=== PATIENT | male | born 1985 | race Caucasian/White ===

== ENCOUNTER → 2024-01-08 | Emergency (ER) | payer SELFPAY ==
[~2024-01-08] MED LIST: FENTANYL CITR 100 MCG/2 ML ONE; KETOROLAC 30 MG/ML INJ ONE; LIDOCAINE 2% W/EPI 1:200,000 MPF 20 ML VIAL IM ONE
--- OUTSIDE RECORDS SUMMARY | 2024-01-08 14:07 | XMS REPORT | Continuity of Care Document ---
Author Name Unknown Address [address] [facility] [address] [place] [id number] [facility] thconnect Address [address] [facility]. [address] [place] [address] Care Team Providers Care Roofing Sales Representative Name Role Phone Chepe Norman MD Attending Clinician CHEPE NORMAN Attending Clinician Unavailable Allergies, Adverse Reactions, Alerts Allergy Name Allergy Type Status Severity Reaction(s) Onset Date Inactive Date Treating Clinician Comments Source NO KNOWN ALLERGIE S Drug Class Active [facility] Social History Social Habit Start Date Stop Date Quantity Comments Source Exposure to SARS-CoV-2 (event) Unable to assess [facility] Sex Ass[birth year] At 1985 00:00:00 1985 00:00:00 [facility] Smoking Status Start Date Stop Date Source Unknown if ever smoked [facility] Medications Ordered Medication Name Filled Medication Name Start Date Stop Date Current Medication? Ordering Clinician Indication Dosage Frequency Signature (SIG) Comments Components Source NaCl 0.9% (NS) bolus infusion 1,000 mL 05-25 17:30: 00 05-25 19:22 :00 No 1000mL at 999 mL/hr, 1,000 mL, IV Infusion, ONCE, 1 dose, 05/25/21 at 1230, [facility] naloxone (NARCAN) injection 2 mg 05-25 15:45: 00 05-25 14:24 :00 No 2mg 2 mg, Slow IV Push, ONCE, 1 dose, 05/25/21 at 1045, STAT [facility] naloxone (NARCAN) injection 2 mg 05-25 15:45: 00 05-25 14:22 :00 No 2mg 2 mg, Slow IV Push, ONCE, 1 dose, 05/25/21 at 1045, [facility] ammonia aromatic 15 % (w/v) inhaler 1 Ampule 05-25 15:45: 00 05-25 14:20 :00 No 1{ampul e} 1 Ampule, Inhalation , ONCE, 1 dose, 05/25/21 at 1045, [facility] ondansetron (ZOFRAN (PF)) injection 4 mg 05-25 15:30: 00 05-25 14:48 :00 No 4mg 4 mg, Slow IV Push, ONCE, 1 dose, 05/25/21 at 1030, [facility] NaCl 0.9% (NS) bolus infusion 500 mL 05-25 15:30: 00 05-25 16:03 :00 No 500mL at 999 mL/hr, 500 mL, IV Piggyback, ONCE, 1 dose, 05/25/21 at 1030, [facility] Vital Signs Vital Name Observation Time Observation Value Comments S ource Systolic blood pressure 2021-05-25 20:00:00 123 mm[Hg] [facility] Diastolic blood pressure 2021-05-25 20:00:00 69 mm[Hg] [facility] Heart rate 2021-05-25 20:00:00 72 /min [facility] Respiratory rate 2021-05-25 20:00:00 19 /min [facility] Oxygen saturation in Arterial blood by Pulse oximetry 2021-05-25 20:00:00 97 /min [facility] Body temperature 2021-05-25 14:15:00 36.67 Nae [facility] Body weight 2021-05-25 14:15:00 68.04 kg [facility] Procedures Procedure Date / Time Performed Performing Clinician Source URINALYSIS 2021-05-25 15:01:00 [facility] URINE DRUG (IMMUNOASSAY) - COMPREHENSIVE DRUG SCREEN W/O REFLEX 2021-05-25 15:01:00 Chepe Norman [facility] CREATINE KINASE 2021-05-25 14:43:00 [facility] 2021-05-25 14:43:00 Chepe Norman [facility] MAGNESIUM 2021-05-25 14:43:00 [facility] TROPONIN I 2021-05-25 14:43:00 [facility] COMP. METABOLIC PANEL (15526) 2021-05-25 14:43:00 Chepe Norman [facility] SALICYLATE 2021-05-25 14:43:00 [facility] ETHANOL 2021-05-25 14:43:00 [facility] CBC WITH DIFF 2021-05-25 14:43:00 Chepe Norman [facility] N-TERMINAL PRO-BNP 2021-05-25 14:43:00 Chepe Norman [facility] COVID-19 (ID NOW RAPID TESTING) 2021-05-25 14:43:00 Chepe Norman [facility] AC PANEL 21 + LACTIC ACID 2021-05-25 14:34:00 Chepe Norman [facility] Encounters Start Date/Time End Date/Time Encounter Type Admission Type Attending [facility] Facility Care Department Encounter ID Source 2021-05-25 09:16:00 2021-05-25 15:56:00 Emergency Chepe Norman [facility] [id number] [facility] 2021-05-25 09:16:00 2021-05-25 09:16:00 Emergency X CHEPE NORMAN [facility] ERT [id number] [facility] Results Test Description Test Time Test Comments Results Result Co mments Source [facility] 16:11:23* Test Item Value Reference Range Interpretation Comme nts SALICYLATE (test code = 6549701127) <10 mg/L ALANNAH (test code = ALANNAH) Therapeutic Range: ? Analgesic and Antipyretic Use ? 20-100 mg/L ? ? Anti-Inflammatory Use ? 100-250 mg/L Toxic Range: ? Greater than 300 mg/L [facility] WITH [id number] 16:02:34* Test Item Value Reference Range Interpretation Comme nts WBC (test code = 6690-2) See_Comment H [Automated messa ge] The system which generated this result transmitted reference range: 4.20 - 10.70 10*3/?L. The reference range was not used to interpret this result as normal/abnormal. RBC (test code = 789-8) See_Comment L [Automated messa ge] The system which generated this result transmitted reference range: 4.26 - 5.52 10*6/?L. The reference range was not used to interpret this result as normal/abnormal. HGB (test code = 718-7) 13.1 g/dL 12.2-16.4 HCT (test code = 4544-3) 37.4 % 38.4-49.3 L MCV (test code = 787-2) 91.2 fL 81.7-95.6 MCH (test code = 785-6) 32.0 pg 26.1-32.7 MCHC (test code = 786-4) 35.0 g/dL 31.2-35.0 RDW-SD (test code = 64815-2) 40.4 fL 38.5-51.6 RDW-CV (test code = 788-0) 12.0 % 12.1-15.4 L PLT (test code = 777-3) See_Comment [Automated messa ge] The system which generated this result transmitted reference range: 150 - 328 10*3/?L. The reference range was not used to interpret this result as normal/abnormal. MPV (test code = 25946-9) 10.1 fL 9.8-13.0 NRBC/100 WBC (test code = 6645942297) See_Comment [Automated me ssage] The system which generated this result transmitted reference range: 0.0 - 10.0 /100 WBCs. The reference range was not used to interpret this result as normal/abnormal. NRBC x10^3 (test code = 3844855475) <0.01 See_Comment [Automated messa ge] The system which generated this result transmitted reference range: 10*3/?L. The reference range was not used to interpret this result as normal/abnormal. GRAN MAT (NEUT) % (test code = 770-8) 46.5 % IMM GRAN % (test code = 8531122972) 0.30 % LYMPH % (test code = 736-9) 40.0 % MONO % (test code = 5905-5) 9.1 % EOS % (test code = 713-8) 3.4 % BASO % (test code = 706-2) 0.7 % GRAN MAT x10^3(ANC) (test code = 6744122893) 4.98 10*3/uL 1.99-6.95 IMM GRAN x10^3 (test code = 1081386007) 0.03 10*3/uL 0.00-0.06 LYMPH x10^3 (test code = 731-0) 4.30 10*3/uL 1.09-3.23 H MONO x10^3 (test code = 742-7) 0.98 10*3/uL 0.36-1.02 EOS x10^3 (test code = 711-2) 0.37 10*3/uL 0.06-0.53 BASO x10^3 (test code = 704-7) 0.08 10*3/uL 0.01-0.09 Lab Interpretation (test code = 14381-4) Abnormal [facility] [id number] 15:45:28* Test Item Value Reference Range Interpretation Comments TROPONIN I (test code = 4720943481) 0.000 ng/mL See_Comment [Automated message] The system which generated this result transmitted reference range: <=0.034. The reference range was not used to interpret this result as normal/abnormal. ALANNAH (test code = ALANNAH) Reference (Normal) Range (defined by the 99th percentile reference limit): <= 0.034 ng/mL Note: Cardiac troponin begins to rise 3-4 hours after the onset of ischemia. Repeat in 4-6 hours if the sample was drawn within 3-4 hours of the onset of the symptom and found normal. Diagnosis of myocardial injury is made with acute changes in cTn concentrations with at least one serial sample above the 99th percentile upper reference limit (URL), taken together with the patient's clinical presentation. Biotin has been reported to cause a negative bias, interpret results relative to patient's use of biotin. Lab Interpretation (test code = 93617-1) [facility] 15:43:47* Test Item Value Reference Range Interpretation Comme nts ALCOHOL (test code = 5833377729) <10 mg/dL ALANNAH (test code = ALANNAH) <10 [id number] Toxic>100 Depression of UNIVERSAL WINDING MACHINE OPERATOR>400 Fatalities Reported [facility]ASSA[facility] - COMPREHENSIVE DRUG SCREEN W/O [id number] 15:43:27* Test Item Value Reference Range Interpretation Comme nts AMPHET (test code = 4530849305) Negative Negative LADONNA U (test code = 8716225842) Negative Negative BENZO U (test code = 3240339389) Presumptive Positive Negative A Cocaine Metabolite (test code = 2997936613) Negative Negative METHADONE (test code = 6273210405) Negative Negative OPIATES (test code = 4898968371) Negative Negative PCP (test code = 0337147899) Negative Negative THC (test code = 0928715312) Negative Negative ALANNAH (test code = ALANNAH) Urine Drug Cutoff Ranges Cocaine: ? 150 ng/mLBenzodiazepines: ? ? 200 ng/mLMethadone: ? 300 ng/mLAmphetamine: ? 1,000 ng/mLOpiates: ? 300 ng/mLCannabinoids: ?50 ng/mLPhencyclidine: ? ? ? 25 ng/mLBarbiturates: ?200 ng/mL The results are to be used only for medical (i.e., treatment) purposes. Unconfirmed screening results must not be used for non-medical purposes (e.g., employment testing, legal testing). Lab Interpretation (test code = 86063-7) Abnormal [facility] [id number] 15:42:07* Test Item Value Reference Range Interpretation Comme nts NT-proBNP (test code = 5819948709) 37 pg/mL See_Comment [Automated message] The system which generated this result transmitted reference range: <=125. The reference range was not used to interpret this result as normal/abnormal. ALANNAH (test code = ALANNAH) Biotin has been reported to cause a negative bias, interpret results relative to patient's use of biotin. Lab Interpretation (test code = 56781-8) Normal [facility]2021-[facility]-31 15:33:49* Test Item Value Reference Range Interpretation Comme nts APPEARANCE (test code = 2251263782) Clear Clear COLOR (test code = 1905920813) Yellow Yellow PH (test code = 5830320130) 4.8-8.0 SP GRAVITY (test code = 9055781658) 1.003-1.030 GLU U QUAL (test code = 0385944060) Normal Normal BLOOD (test code = 1983333103) Negative Negative KETONES (test code = 8556351834) Negative Negative PROTEIN (test code = 2887-8) Negative Negative UROBILIN (test code = 8031005289) Normal Normal BILIRUBIN (test code = 0646830556) Negative Negative NITRITE (test code = 5404002218) Negative Negative LEUK MONALISA (test code = 2957985224) Negative Negative RBC/HPF (test code = 7256320620) <1 See_Comment [Automated Pigita ge] The system which generated this result transmitted reference range: 0 - 3 HPF. The reference range was not used to interpret this result as normal/abnormal. WBC/HPF (test code = 1771125762) See_Comment [Automated Pigita ge] The system which generated this result transmitted reference range: 0 - 5 HPF. The reference range was not used to interpret this result as normal/abnormal. BACTERIA (test code = 7831046542) Negative Negative MUCOUS (test code = 7521055600) Slight Negative LPF A Lab Interpretation (test code = 92898-9) [facility]normal [facility] (ID NOW RAPID TESTING)2021-05-25 15:33:08* Test Item Value Reference Range Interpretation Comme nts SARS-CoV-2 Rapid ID NOW (test code = 87171-5) Not Detected Not Detected ALANNAH (test code = ALANNAH) ID NOW COVID-19 As say is an isothermal nucleic acid amplification test intended for the qualitative detection of nucleic acid from SARS-CoV-2 viral RNA in nasopharyngeal (DRIVERS' CASH CLERK) specimens. It is used under Emergency Use Authorization (EUA) by FDA. The limit of detection (LOD) of the assay is 125 Genome Equivalents/mL. A positive result is indicative of the presence of SARS-CoV-2 RNA. ?Clinical correlation with patient history and other diagnostic information is necessary to determine patient infection status. A negative (Not Detected) result does not preclude SARS-CoV-2 infection. In patients with clinical symptoms and other tests that are consistent with SARS-CoV-2 infection, negative results should be treated as presumptive negative and a new specimen should be tested with alternative PCR molecular test. Invalid: Please collect a new specimen for repeat patient testing if clinically indicated. Lab Interpretation (test code = 66197-5) Normal [facility]2021-[facility]-31 15:32:26* Test Item Value Reference Range Interpretation Comme nts MAGNESIUM (test code = 9080303318) 2.1 mg/dL 1.7-2.4 Lab Interpretation (test cod e = 52725-5) Normal [facility] 15:32:06* Test Item Value Reference Range Interpretation Comme nts LIPASE (test code = 3229043573) 60 U/L 0-220 Lab Interpretation (test cod e = 88764-5) [facility] Center[facility] METABOLIC PANEL (08628)2021-05-25 15:32:06* Test Item Value Reference Range Interpretation Comme nts NA (test code = 2146402762) 138 mmol/L 135-145 K (test code = 1005224564) 3.4 mmol/L 3.5-5.0 L CL (test code = 8070184278) 101 mmol/L 98-108 CO2 TOTAL (test code = 2883522286) 28 mmol/L 23-31 AGAP (test code = 0909199435) 2-16 BUN (test code = 7737821320) 14 mg/dL 7-23 GLUCOSE (test code = 2047615016) 108 mg/dL 70-110 CREATININE (test code = 0424467779) 0.64 mg/dL 0.60-1.25 TOTAL BILI (test code = 3294059272) 0.3 mg/dL 0.1-1.1 CALCIUM (test code = 5557081055) 9.9 mg/dL 8.6-10.6 T PROTEIN (test code = 7696022969) 7.6 g/dL 6.3-8.2 ALBUMIN (test code = 2907227593) 4.7 g/dL 3.5-5.0 ALK PHOS (test code = 2594854234) 59 U/L 34-122 ALTv (test code = 1742-6) 15 U/L 5-50 AST(SGOT) (test code = 5382545496) 23 U/L 13-40 eGFR (test code = 9551042116) mL/min/1.73m2 ALANNAH (test code = ALANNAH) Association of Glomerular Filtration Rate (GFR) and Staging of Kidney Disease* + --+ --+ ------+| GFR (mL/min/1.73 m2) ?| With Kidney Damage ?| ?Without Kidney Damage+ --------+ --------+ +| ?>90 ?| ?Stage one ?| ? Normal ?+ ---+ ---+ -------+| ?60-89 ?| ?Stage two ?| ? Decreased GFR ? + --+ --+ ------+| ?30-59 ?| ?Stage three ?| ? Stage three ? + --+ --+ ------+| ?15-29 ?| ?Stage four ? | ? Stage four ?+ ---+ ---+ -------+| ?<15 (or dialysis) ? ?| ?Stage five ? | ? Stage five ?+ ---+ ---+ -------+ *Each stage assumes the associated GFR level has been in effect for at least three months. ?Stages 1 to 5, with or without kidney disease, indicate chronic kidney disease. Notes: Determination of stages one and two (with eGFR >59mL/min/1.73 m2) requires estimation of kidney damage for at least three months as defined by structural or functional abnormalities of the kidney, manifested by either:Pathological abnormalities or Markers of kidney damage (including abnormalities in the composition of the blood or urine or abnormalities in imaging tests). Lab Interpretation (test code = 53804-5) Abnormal [facility] CenterCREAT[facility] [id number] 15:31:46* Test Item Value Reference Range Interpretation Comme nts CK (test code = 2678410129) 103 U/L 33-194 Lab Interpretation (test cod e = 32403-7) Normal [facility] Center[facility] PANEL 21 + LACTIC [id number] 14:40:13* Test Item Value Reference Range Interpretation Comme nts PH (test code = 3230522410) 7.32-7.42 PCO2 KRISTYN (test code = 6246857044) See_Comment [Automated messa ge] The system which generated this result transmitted reference range: 41 - 51 mmHg. The reference range was not used to interpret this result as normal/abnormal. PO2 KRISTYN (test code = 6699555598) See_Comment H [Automated messa ge] The system which generated this result transmitted reference range: 25 - 40 mmHg. The reference range was not used to interpret this result as normal/abnormal. HCO3 KRISTYN (test code = 3733565416) See_Comment [Automated messa ge] The system which generated this result transmitted reference range: 24 - 28 mEq/L. The reference range was not used to interpret this result as normal/abnormal. AC VBE(BEAKER) (test code = 5858052813) mEq/L THB KRISTYN (test code = 8680904941) 14.0 g/dL 13.5-18.0 %O2HB KRISTYN (test code = 3531186375) 86.2 % 52.0-63.0 H %COHB KRISTYN (test code = 7306974505) 3.9 % 0.0-1.5 H %METHB KRISTYN (test code = 1158493932) 0.3 % 0.4-1.5 L VOL%O2 KRISTYN (test code = 2438914867) 16.9 % 6.0-12.0 H NA (test code = 3054650159) 137 mmol/L 135-145 K+ (test code = 8170252302) 3.5 mmol/L 3.5-5.0 AC CA IONZ (test code = 5177994231) 4.60 mg/dL 4.50-5.30 GLUCOSE (test code = 4801333658) 103 mg/dL 70-110 LACTIC ACID (test code = 0350955997) 1.15 mmol/L 0.50-2.20 Lab Interpretation (test code = 28220-7) Abnormal [facility]"
[2024-01-08 14:57] LABS: Absolute Basophils 0.1 K/uL (0-0.5); Absolute Eosinophils 0.2 K/uL (0-0.5); Absolute Lymphocytes (CBC) 2.3 K/uL (0.7-4.9); Absolute Monocytes 1.3 K/uL (0.1-1.3); Absolute Neutrophil 7.4 K/uL (1.8-8.0); Eosinophils % 1.3 % (0-4.4); Hemoglobin 12.5 g/dL (13.6-17.9); Lymphocytes % 20.3 % (15.3-44.8); MCHC 33.7 g/dL (32.0-36.0); MCV 97.8 fL (80-100); MPV 7.9 fL (7.6-11.3); Monocytes % 11.4 % (3.3-12.3); Platelets 333 thou/uL (152-406); RBC Red Blood Cell Count 3.78 M/uL (4.33-5.43); Red Cell Distribution Width 14.9 % (12.1-15.2)
[2024-01-08 15:17] LABS: Albumin 3.3 g/dL (3.4-5.0); Albumin/Globulin Ratio 0.9 (1.1-1.8); Anion Gap 7.6 mEq/L (5.0-15.0); Bilirubin Total 0.3 mg/dL (0.2-1.0); Globulin 3.6 g/dL (2.3-3.5); Potassium 3.6 mEq/L (3.5-5.1); Protein, Total 6.9 g/dL (6.4-8.2)
--- NOTE | 2024-01-08 15:30 | RAD REPORT ---
EXAM DESCRIPTION: CT - CTF CLINICAL HISTORY: L lower facial swelling COMPARISON: No comparisons TECHNIQUE: Axial thin cut noncontrast CT images of the face were obtained with sagittal and coronal reconstruction images. All CT scans are performed using dose optimization technique as appropriate and may include automated exposure control or mA/KV adjustment according to patient size. FINDINGS: Prominent soft tissue swelling along the left lower show. Ill-defined suspected fluid andrea ection suggesting a subperiosteal abscess measuring 2.0 x 1.0 cm in greatest axial dimensions. This a ppears to be centered on a small periapical fluid collection along the root of the second left mandib ular premolar where there is a buccal cortex defect, see image 26 series 201. Numerous other periapic al collections are seen along the maxillary and mandibular teeth. No acute facial bone fracture is seen.The mandible is intact. The globes and orbital contents are grossly unremarkable.The paranasal sinuses and mastoids are clear . IMPRESSION: Pronounced soft tissue swelling along the left lower jaw, with suspected although ill-de fined subperiosteal fluid collection suggesting an abscess measuring up to 2 cm. This appears to be c enter on a small periapical fluid collection along the root of the second left mandibular premolar. Numerous other periapical collections are seen along the maxillary and mandibular teeth. The findings were communicated to Javed Luis on 01/08/2024 at 15:18 hours.
--- NOTE | 2024-01-08 16:25 | EDPHYS ---
Physician Documentation [facility] Name: Dao Fortune Age: 38 yrs Sex: Male : 1985 Arrival Date: 01/08/2024 Time: 14:04 Bed 14 Private MD: ED Physician Javed Luis HPI: 01/07 14:21 This 38 yrs old Male presents to ER via Ambulatory with complaints of Mouth ec2 Problem. 14:21 Patient arrives today for evaluation of left facial swelling. Patient reports 2 days of ec2 progressive swelling to the left lower lip. Patient reports no fevers or chills, no nausea or vomiting. Patient reports increased pain. Reports reports poor dentition at baseline, is a smoker approximately 1 and a half pack per day.. Historical: - Allergies: 14:18 Iodine; ll1 - PMHx: 14:18 None; ll1 - PSHx: 14:18 L arm SX; ll1 - Immunization history:: Adult Immunizations up to date. - Social history:: Smoking status: Patient reports the use of cigarette tobacco products, smokes one pack cigarettes per day. Reported history of juuling and/or vaping. ROS: 14:21 Constitutional: as per hpi ec2 Exam: 14:21 Constitutional: GEN: NAD Head: atraumatic Eyes: EOMI Ears: External ears are normal. ec2 Mouth: Left lower facial swelling, induration noted at the lower gumline. No stridor, no trismus CV: regular rate LUNGS: no respiratory distress ABD: non-distended SKIN: no evidence of rashes MSK: no evidence of trauma NEURO: moves all extremities equally Vital Signs: 14:16 BP 136 / 101; Pulse 61; Resp 17; Temp 98.4; Pulse Ox 100% ; Weight 70.31 kg; Height 5 ll1 ft. 9 in. ; Pain 8/10; 14:49 BP 126 / 86; Pulse 60; Resp 16 S; Pulse Ox 97% on R/A; Pain 7/10; kc6 16:05 BP 106 / 63; Pulse 58; Resp 17; Pulse Ox 98% on R/A; kd3 16:30 BP 154 / 75; Pulse 55; Resp 16 S; Pulse Ox 98% on R/A; kc6 14:16 Body Mass Index 22.89 (70.31 kg, 175.26 cm) ll1 14:16 Pain Scale: Adult ll1 14:49 Pain Scale: Adult kc6 Procedures: 16:23 I \T\ D: Incision and drainage was performed for an abscess of the left mouth Prepped ec2 with Anesthetized with 2 ml's 2% Lidocaine. Incised with #11 blade. Drained large amount purulent fluid. the patient tolerated the procedure well. MDM: 14:12 Patient medically screened. ec2 14:21 Data reviewed: vital signs. ED course: Patient arrives today for evaluation of facial ec2 swelling. Examination remarkable for HEENT findings as noted above. Will obtain lab work, CT imaging. Patient is allergic to iodine, will defer contrasted study however this would be preferred. Will give the patient Toradol for pain control and obtain lab work as well. Evaluating for dental abscess, soft tissue abscess.. 15:18 ED course: Metabolic profile with appropriate renal function, minimal leukocytosis at ec2 11.2. . 15:44 ED course: CT imaging shows Swelling in the left lower jaw, this corresponds to the ec2 patient's swelling visualized on examination. I discussed possible ENT I\T\D, states that he would like to proceed with drainage at the bedside by me. I will perform direct anesthesia to the area and perform I\T\D. . 01/07 14:19 Order name: CBC with Diff; Complete Time: 15:16 ec2 01/07 14:19 Order name: CMP; Complete Time: 15:18 ec2 01/07 14:26 Order name: Maxillofacial Wo Con; Complete Time: 15:32 EDMS 01/07 15:45 Order name: Incision \T\ Drainage Setup; Complete Time: 15:56 ec2 Administered Medications: 14:47 Drug: Ketorolac IVP 15 mg IVP once Route: IVP; Site: right antecubital; kc6 15:21 Follow up: Response: No adverse reaction kc6 16:04 Drug: fentaNYL (PF) IVP 50 mcg IVP once Route: IVP; Site: right antecubital; kd3 16:30 Follow up: Response: No adverse reaction; Pain is decreased; RASS: Alert and Calm (0) kc6 16:09 Drug: Lidocaine-Epinephrine Infiltration -1%: (1:100,000) 10 ml 20 ml Infiltration kc6 once; to bedside {Note: let jaw/facial area by Dr. Luis.} Volume: 20 ml; Route: Infiltration; 16:30 Follow up: Response: No adverse reaction; Pain is decreased kc6 Disposition Summary: 01/08/24 16:24 Discharge Ordered Condition: Stable ec2 Diagnosis - Dental Abscess ec2 Followup: ec2 - With: Private Physician - When: - Reason: Re-evaluation by your physician Discharge Instructions: - Discharge Summary Sheet ec2 - Dental Abscess, [id number] ec2 Forms: - Medication Reconciliation Form ec2 - Thank You Letter ec2 - Antibiotic Education ec2 - Prescription Opioid Use ec2 - Patient Portal Instructions ec2 - Leadership Thank You Letter ec2 Prescriptions: - acetaminophen-codeine 300-15 mg Oral tablet - take 1 tablet ORAL route 4 times per day; 15 tablet; Refills: 0, Product ec2 Selection Permitted - Clindamycin HCl 150 mg Oral capsule - take 3 capsule ORAL route every 8 hours for 7 days; 63 capsule; Refills: 0, ec2 Product Selection Permitted Signatures: Dispatcher [employer] EDSoo Webb RN RN ll1 Bela Vang RN RN kd3 Marisol Hemphill RN RN kc6 Javed Luis MD MD ec2 Corrections: (The following items were deleted from the chart) 14:26 14:23 CT-MAXILLOFACIAL W/O CONTRAST ordered. EDME WANDA
--- NOTE | 2024-01-08 16:25 | ER ---
Nurse's Notes [facility] Name: Dao Fortune Age: 38 yrs Sex: Male : 1985 Arrival Date: 01/08/2024 Time: 14:04 Bed 14 Private MD: Diagnosis: Dental Abscess Presentation: 01/07 14:16 Chief complaint: Patient states: L lower jaw tooth pain for 4 days swelling more each ll1 day. No fever, but N/V started today. Coronavirus screen: Client denies travel out of the [place] in the last 14 days. At this time, the client does not indicate any symptoms associated with coronavirus-19. Ebola Screen: Patient denies travel to an Ebola-affected area in the 21 days before illness onset. Initial Sepsis Screen: Does the patient meet any 2 criteria? No. Patient's initial sepsis screen is negative. Does the patient have a suspected source of infection? No. Patient's initial sepsis screen is negative. Risk Assessment: Do you want to hurt yourself or someone else? Patient reports no desire to harm self or others. Onset of symptoms was January 05, 2024. 14:16 Method Of Arrival: Ambulatory ll1 14:16 Acuity: NICK 3 ll1 Historical: - Allergies: 14:18 Iodine; ll1 - PMHx: 14:18 None; ll1 - PSHx: 14:18 L arm SX; ll1 - Immunization history:: Adult Immunizations up to date. - Social history:: Smoking status: Patient reports the use of cigarette tobacco products, smokes one pack cigarettes per day. Reported history of juuling and/or vaping. Screenin:48 [facility] ED Fall Risk Assessment (Adult) History of falling in the last 3 months, kc6 including since admission No falls in past 3 months (0 pts) Confusion or Disorientation No (0 pts) Intoxicated or Sedated No (0 pts) Impaired Gait No (0 pts) Mobility Assist Device Used No (0 pt) Altered Elimination No (0 pt) Score/Fall Risk Level 0 - 2 = Low Risk. Abuse screen: Denies threats or abuse. Denies injuries from another. Nutritional screening: No deficits noted. Tuberculosis screening: No symptoms or risk factors identified. Assessment: 14:48 General: Appears in no apparent distress. comfortable, well groomed, well developed, kc6 Behavior is calm, cooperative, appropriate for age. Pain: Complains of pain in mouth Pain currently is 7 out of 10 on a pain scale. Quality of pain is described as throbbing. Neuro: Level of Consciousness is awake, alert, obeys commands, Oriented to person, place, time, situation, Appropriate for age. Cardiovascular: Capillary refill < 3 seconds. Respiratory: Airway is patent Trachea midline Respiratory effort is even, unlabored, Respiratory pattern is regular, symmetrical. GI: No signs and/or symptoms were reported involving the gastrointestinal system. : No signs and/or symptoms were reported regarding the genitourinary system. EENT: No signs and/or symptoms were reported regarding the EENT system. Derm: Skin is intact, is healthy with good turgor, Skin is pink, warm \T\ dry. Musculoskeletal: Circulation, motion, and sensation intact. Capillary refill < 3 seconds, Range of motion: intact in all extremities, Swelling present in mouth. 16:30 Reassessment: Patient appears in no apparent distress at this time. No changes from kc6 previously documented assessment. Patient and/or family updated on plan of care and expected duration. Pain level reassessed. Patient is alert, oriented x 3, equal unlabored respirations, skin warm/dry/pink. Patient states feeling better. Patient states symptoms have improved. Vital Signs: 14:16 BP 136 / 101; Pulse 61; Resp 17; Temp 98.4; Pulse Ox 100% ; Weight 70.31 kg; Height 5 ll1 ft. 9 in. ; Pain 8/10; 14:49 BP 126 / 86; Pulse 60; Resp 16 S; Pulse Ox 97% on R/A; Pain 7/10; kc6 16:05 BP 106 / 63; Pulse 58; Resp 17; Pulse Ox 98% on R/A; kd3 16:30 BP 154 / 75; Pulse 55; Resp 16 S; Pulse Ox 98% on R/A; kc6 14:16 Body Mass Index 22.89 (70.31 kg, 175.26 cm) ll1 14:16 Pain Scale: Adult ll1 14:49 Pain Scale: Adult kc6 ED Course: 14:08 Patient arrived in ED. mg5 14:08 Javed Luis MD is Attending Physician. ec2 14:18 Triage completed. ll1 14:19 Arm band placed on Patient placed in an exam room, on a stretcher. ll1 14:32 Marisol Hemphill, CINDA is Primary Nurse. kc6 14:33 Maxillofacial Wo Con In Process Unspecified. EDMS 14:47 Inserted saline lock: 20 gauge in right antecubital area, using aseptic technique. kc6 Blood collected. Patient maintains SpO2 saturation greater than 95% on room air. 14:48 Patient has correct armband on for positive identification. Bed in low position. Call kc6 light in reach. Side rails up X 1. Adult w/ patient. Client placed on continuous cardiac and pulse oximetry monitoring. NIBP monitoring applied. 16:13 Assist provider with I \T\ D: of an abscess on left jaw Set up I\T\D tray. Performed by abdifatah 6 Javed Luis MD Dressing with 4X4s, tape Patient tolerated well. 16:36 IV discontinued, intact, bleeding controlled, No redness/swelling at site. Pressure kc6 dressing applied. Administered Medications: 14:47 Drug: Ketorolac IVP 15 mg IVP once Route: IVP; Site: right antecubital; kc6 15:21 Follow up: Response: No adverse reaction kc6 16:04 Drug: fentaNYL (PF) IVP 50 mcg IVP once Route: IVP; Site: right antecubital; kd3 16:30 Follow up: Response: No adverse reaction; Pain is decreased; RASS: Alert and Calm (0) kc6 16:09 Drug: Lidocaine-Epinephrine Infiltration -1%: (1:100,000) 10 ml 20 ml Infiltration kc6 once; to bedside {Note: let jaw/facial area by Dr. Luis.} Volume: 20 ml; Route: Infiltration; 16:30 Follow up: Response: No adverse reaction; Pain is decreased kc6 Medication: 16:36 VIS not applicable for this client. kc6 Outcome: 16:24 Discharge ordered by MD. ec2 16:36 Discharged to home ambulatory, with significant other, kc6 16:36 Condition: good 16:36 Discharge instructions given to patient, Instructed on discharge instructions, follow up and referral plans. medication usage, wound care, Demonstrated understanding of instructions, follow-up care, medications, wound care, Prescriptions given X 2, 16:36 Patient left the ED. kc6 Signatures: Dispatcher [employer] Soo Matthews RN RN ll1 Bela Vang, CINDA RN kd3 Marisol Hemphill RN RN kc6 Heather Underwood mg5 Javed Luis MD MD ec2 Corrections: (The following items were deleted from the chart) 14:19 14:16 BP 136 / 101; Pulse 61bpm; Resp 17bpm; Pulse Ox 100%; Temp 98.4F; ll1 ll1
[2024-01-08 17:19] VITALS: TEMP 98.4
[2024-01-08 17:45] VITALS: BP 154/75; O2SAT 98
== END ==
LOC: ER 14:04
PROC: 0C94XZZ Drainage of Buccal Mucosa, External Approach (ICD-10-PCS; principal; 2024-01-08)
DX: K04.7 Periapical abscess without sinus (principal)
CPT/HCPCS: 36415; 70486; 80053; 85025; 96374; 96375; 99285; J3010

== ENCOUNTER 2024-06-04 14:29 | Emergency (ER) | payer SELFPAY ==
--- NOTE | 2024-06-04 16:23 | ER ---
Nurse's Notes [facility] Name: Dao Fortune Age: 38 yrs Sex: Male : 1985 Arrival Date: 06/04/2024 Time: 14:29 Bed DX1 Private MD: Diagnosis: Rash and other nonspecific skin eruption;Bitten by rat, initial encounter Presentation: 06/04 14:50 Chief complaint: Patient states: Was bit by a rat 1 month ago on his left hand and cm10 bilateral feet. Pt states that he has had a rash "and other weird symptoms". Coronavirus screen: Client denies travel out of the [place] in the last 14 days. At this time, the client does not indicate any symptoms associated with coronavirus-19. Ebola Screen: Patient denies travel to an Ebola-affected area in the 21 days before illness onset. No symptoms or risks identified at this time. Initial Sepsis Screen: Does the patient meet any 2 criteria? No. Patient's initial sepsis screen is negative. Does the patient have a suspected source of infection? No. Patient's initial sepsis screen is negative. Risk Assessment: Do you want to hurt yourself or someone else? Patient reports no desire to harm self or others. Onset of symptoms was June 04, 2024. 14:50 Method Of Arrival: Ambulatory cm10 14:50 Acuity: NICK 4 cm10 Triage Assessment: 14:52 General: Appears in no apparent distress. comfortable, Behavior is calm, cooperative. cm10 Neuro: No deficits noted. Level of Consciousness is awake, alert, obeys commands, Oriented to person, place, time, situation, Appropriate for age. Respiratory: No deficits noted. Airway is patent Respiratory effort is even, unlabored, Respiratory pattern is regular, symmetrical. Historical: - Allergies: 14:51 Iodine; cm10 - Home Meds: 14:51 None [Active]; cm10 - PMHx: 14:51 None; cm10 - PSHx: 14:51 L arm SX; cm10 - Immunization history:: Adult Immunizations up to date. - Infectious Disease History:: Denies. - Social history:: Smoking status: unknown. Screenin:31 [facility] ED Fall Risk Assessment (Adult) History of falling in the last 3 months, hb including since admission No falls in past 3 months (0 pts) Confusion or Disorientation No (0 pts) Intoxicated or Sedated No (0 pts) Impaired Gait No (0 pts) Mobility Assist Device Used No (0 pt) Altered Elimination No (0 pt) Score/Fall Risk Level 0 - 2 = Low Risk Oriented to surroundings, Maintained a safe environment, Educated pt \\T\\ family on fall prevention, incl call for assistance when getting out of bed. Abuse screen: Denies threats or abuse. Denies injuries from another. Nutritional screening: No deficits noted. Tuberculosis screening: No symptoms or risk factors identified. Assessment: 17:31 General: Appears in no apparent distress. Behavior is calm, cooperative. Pain: Pain hb currently is 3 out of 10 on a pain scale. Neuro: Level of Consciousness is awake, alert, obeys commands, Oriented to person, place, time, situation. Cardiovascular: Patient's skin is warm and dry. Vital Signs: 14:50 BP 130 / 71; Pulse 56; Resp 18; Temp 97.9; Pulse Ox 100% ; Weight 68.04 kg; Height 5 cm10 ft. 9 in. ; Pain 3/10; 14:50 Body Mass Index 22.15 (68.04 kg, 175.26 cm) cm10 14:50 Pain Scale: Adult cm10 ED Course: 14:31 Patient arrived in ED. mr 14:35 [facility]egan Edgar [facility]C [facility] sb4 14:35 Sven Payton MD is Attending Physician. sb4 14:51 Triage completed. cm10 14:52 Arm band placed on Patient placed in waiting room. cm10 15:55 Shoulder Right (2 View) XRAY In Process Unspecified. EDMS 17:31 Patient has correct armband on for positive identification. Provided Education on: hb follow up, medications . 17:31 No provider procedures requiring assistance completed. Patient did not have IV access hb during this emergency room visit. Administered Medications: 17:30 Drug: Rocephin (cefTRIAXone) IM 1 grams IM once Route: IM; Site: left deltoid; hb 17:30 Follow up: Response: Medication administered at discharge. hb Medication: 17:31 VIS not applicable for this client. hb Outcome: 16:22 Discharge ordered by . sb4 17:30 Discharged to home ambulatory, hb 17:30 Condition: stable 17:30 Discharge instructions given to patient, Instructed on discharge instructions, follow up and referral plans. medication usage, Demonstrated understanding of instructions, follow-up care, medications, Prescriptions given X 2, 17:32 Patient left the ED. Signatures: Dispatcher [employer] EDTN Kristi Evans, Rajendra Drew mr Mila Acosta, RN RN Maegan Robertson, PA-C PA-C [email or web address] Lorie Kan RN RN cm10
--- NOTE | 2024-06-04 16:23 | EDPHYS ---
Physician Documentation [facility] Name: Dao Fortune Age: 38 yrs Sex: Male : 1985 Arrival Date: 06/04/2024 Time: 14:29 Bed DX1 Private MD: ED Physician Sven Payton HPI: 06/04 15:40 This 38 yrs old Male presents to ER via Ambulatory with complaints of Rat Bite. sb4 15:40 patient states that he was bitten by a rat on his left finger and bilateral feet 1 sb4 month ago. he states that he did not initially seek medical attention. he states that since then he has had an intermittent rash on his hands and feet, been fatigued, and has pain all over. additionally, he reports that he "threw his shoulder out" at work 2 days ago. he denies any fever, chest pain, shortness of breath. Historical: - Allergies: 14:51 Iodine; cm10 - Home Meds: 14:51 None [Active]; cm10 - PMHx: 14:51 None; cm10 - PSHx: 14:51 L arm SX; cm10 - Immunization history:: Adult Immunizations up to date. - Infectious Disease History:: Denies. - Social history:: Smoking status: unknown. ROS: 15:40 Respiratory: Negative for shortness of breath, cough, wheezing, and pleuritic chest sb4 pain, 15:40 Constitutional: Positive for fatigue, malaise, 15:40 MS/extremity: Positive for injury or acute deformity, pain, of the anterior aspect of right shoulder and posterior aspect of right shoulder, 15:40 Skin: Positive for rash, 15:40 All other systems are negative, Exam: 16:20 Constitutional: This is a well developed, well nourished patient who is awake, alert, sb4 and in no acute distress. Head/Face: Normocephalic, atraumatic. Eyes: Extra-ocular motions intact. Periorbital areas with no swelling, redness, or edema. ENT: Mucous membranes moist. Cardiovascular: Regular rate and rhythm with a normal S1 and S2. Respiratory: Lungs have equal breath sounds bilaterally, clear to auscultation and percussion. No rales, rhonchi or wheezes noted. No increased work of breathing, no retractions or nasal flaring. Abdomen/GI: Soft, non-tender, no distension. 16:20 Musculoskeletal/extremity: Joints: the right shoulder displays painful range of motion, 16:20 Skin: scaling patches palmar aspect of bilateral hands and feet, Vital Signs: 14:50 BP 130 / 71; Pulse 56; Resp 18; Temp 97.9; Pulse Ox 100% ; Weight 68.04 kg; Height 5 cm10 ft. 9 in. ; Pain 3/10; 14:50 Body Mass Index 22.15 (68.04 kg, 175.26 cm) cm10 14:50 Pain Scale: Adult cm10 MDM: 14:42 Patient medically screened. sb4 16:20 Data reviewed: vital signs, nurses notes, radiologic studies, I have discussed the sb4 patient's presentation/case with the attending Emergency Department Physician; and as a result, I will discharge patient. Counseling: I had a detailed discussion with the patient and/or guardian regarding the historical points, exam findings, and any diagnostic results supporting the discharge/admit diagnosis, radiology results, to return to the emergency department if symptoms worsen or persist or if there are any questions or concerns that arise at home. 06/04 14:55 Order name: Shoulder Right (2 View) XRAY; Complete Time: 16:32 sb4 06/04 16:24 Order name: Shoulder Immobilizer; Complete Time: 17:10 sb4 Administered Medications: 17:30 Drug: Rocephin (cefTRIAXone) IM 1 grams IM once Route: IM; Site: left deltoid; 17:30 Follow up: Response: Medication administered at discharge. Disposition Summary: 06/04/24 16:22 Discharge Ordered Notes: Location: Home sb4 Problem: an ongoing problem sb4 Symptoms: have improved sb4 Condition: Stable sb4 Diagnosis - Rash and other nonspecific skin eruption sb4 - Bitten by rat, initial encounter sb4 Followup: sb4 - With: Emergency Department - When: As needed - Reason: Fever > 102 F, Trouble breathing, Worsening of condition Discharge Instructions: - Discharge Summary Sheet sb4 - Shoulder Sprain sb4 Forms: - Antibiotic Education sb4 - Patient Portal Instructions sb4 - Leadership Thank You Letter sb4 Prescriptions: - Amoxicillin 500 mg Oral capsule - take 1 capsule ORAL route every 8 hours for 14 days; 42 tablet; Refills: 0, sb4 Product Selection Permitted - Anaprox DS 550 mg Oral Tablet - take 1 tablet ORAL route every 12 hours As needed; 20 tablet; Refills: 0, sb4 Product Selection Permitted Signatures: Dispatcher [employer] Mila Johnson, RN RN Maegan Robertson PA-C PA-C sb4 Lorie Kan RN RN cm10
--- NOTE | 2024-06-04 16:31 | RAD REPORT ---
EXAM DESCRIPTION: RAD - Shoulder Right 2 View - 06/04/2024 3:53 pm CLINICAL HISTORY: Right shoulder pain FINDINGS: No fracture or dislocation is seen. No bone or joint abnormality noted
[2024-06-04] MEDS ORDERED: LIDOCAINE 1% MPF 2 ML AMPULE ONE (17:22)
[2024-06-04] MEDS ORDERED: CEFTRIAXONE 1000 MG/VIAL ONE (17:22)
[2024-06-04 17:37] VITALS: BP 130/71; TEMP 97.9; O2SAT 100
== END 2024-06-04 17:32 | disposition home or self-care (01) ==
LOC: ER 14:29
DX: R21 Rash and other nonspecific skin eruption (principal); W53.11XA Bitten by rat, initial encounter; M25.511 Pain in right shoulder
CPT/HCPCS: 96372; 99284; J0696

== ENCOUNTER 2024-06-23 00:22 | Emergency (ER) | payer SELFPAY ==
[2024-06-23] MEDS ORDERED: IBUPROFEN 400 MG TAB ONE (01:23)
[2024-06-23] MEDS ORDERED: IBUPROFEN 200 MG TAB PO ONE (01:23)
--- NOTE | 2024-06-23 01:23 | EDPHYS ---
Physician Documentation [facility] Name: Dao Fortune Age: 38 yrs Sex: Male : 1985 Arrival Date: 06/23/2024 Time: 00:22 Bed 14 Private MD: ED Physician Sven Payton HPI: 06/23 01:18 This 38 yrs old Male presents to ER via Ambulatory with complaints of PT sheila STATES HE HAS "RAT BITE FEVER". 01:18 bitten by rat a month ago. Onset: The symptoms/episode began/occurred 1 month(s) ago. sheila Severity of symptoms: At their worst the symptoms were mild in the emergency department the symptoms are unchanged. The patient has experienced similar episodes in the past. Historical: - Allergies: 01:12 Iodine; rg5 - PSHx: 01:12 L arm SX; rg5 - Immunization history:: Adult Immunizations not up to date. - Infectious Disease History:: Denies. - Social history:: Smoking status: unknown. - Family history:: not pertinent. ROS: 01:18 Constitutional: Negative for fever, chills, and weight loss, Eyes: Negative for injury, sheila pain, redness, and discharge, ENT: Negative for injury, pain, and discharge, Neck: Negative for injury, pain, and swelling, Cardiovascular: Negative for chest pain, palpitations, and edema, Respiratory: Negative for shortness of breath, cough, wheezing, and pleuritic chest pain, Abdomen/GI: Negative for abdominal pain, nausea, vomiting, diarrhea, and constipation, Back: Negative for injury and pain, : Negative for injury, bleeding, discharge, and swelling, Skin: Negative for injury, rash, and discoloration, Neuro: Negative for headache, weakness, numbness, tingling, and seizure, Psych: Negative for depression, anxiety, suicide ideation, homicidal ideation, and hallucinations, Allergy/Immunology: Negative for hives, rash, and allergies, Endocrine: Negative for neck swelling, polydipsia, polyuria, polyphagia, and marked weight changes, Hematologic/Lymphatic: Negative for swollen nodes, abnormal bleeding, and unusual bruising, 01:18 MS/extremity: Positive for pain, of the right arm, left arm, right leg and left leg, Exam: 01:18 Constitutional: This is a well developed, well nourished patient who is awake, alert, sheila and in no acute distress. Head/Face: Normocephalic, atraumatic. Eyes: Pupils equal round and reactive to light, extra-ocular motions intact. Lids and lashes normal. Conjunctiva and sclera are non-icteric and not injected. Cornea within normal limits. Periorbital areas with no swelling, redness, or edema. ENT: Nares patent. No nasal discharge, no septal abnormalities noted. Tympanic membranes are normal and external auditory canals are clear. Oropharynx with no redness, swelling, or masses, exudates, or evidence of obstruction, uvula midline. Mucous membranes moist. Neck: Trachea midline, no thyromegaly or masses palpated, and no cervical lymphadenopathy. Supple, full range of motion without nuchal rigidity, or vertebral point tenderness. No Meningismus. Chest/axilla: Normal chest wall appearance and motion. Nontender with no deformity. No lesions are appreciated. Cardiovascular: Regular rate and rhythm with a normal S1 and S2. No gallops, murmurs, or rubs. Normal PMI, no JVD. No pulse deficits. Respiratory: Lungs have equal breath sounds bilaterally, clear to auscultation and percussion. No rales, rhonchi or wheezes noted. No increased work of breathing, no retractions or nasal flaring. Abdomen/GI: Soft, non-tender, with normal bowel sounds. No distension or tympany. No guarding or rebound. No evidence of tenderness throughout. Back: No spinal tenderness. No costovertebral tenderness. Full range of motion. Male : Normal genitalia with no discharge or lesions. Skin: Warm, dry with normal turgor. Normal color with no rashes, no lesions, and no evidence of cellulitis. MS/ Extremity: Pulses equal, no cyanosis. Neurovascular intact. Full, normal range of motion. Neuro: Awake and alert, GCS 15, oriented to person, place, time, and situation. Cranial nerves II-XII grossly intact. Motor strength 5/5 in all extremities. Sensory grossly intact. Cerebellar exam normal. Normal gait. Psych: Awake, alert, with orientation to person, place and time. Behavior, mood, and affect are within normal limits. Vital Signs: 00:56 BP 128 / 78; Pulse 80; Resp 16; Temp 98.4; Pulse Ox 100% ; Weight 68.04 kg; Height 5 ty ft. 10 in. ; Pain 6/10; 01:12 BP 128 / 72; Pulse 80; Resp 16; Temp 98.2; Pulse Ox 100% on R/A; Pain 6/10; rg5 00:56 Body Mass Index 21.52 (68.04 kg, 177.8 cm) ty 00:56 Pain Scale: Adult ty 01:12 Pain Scale: Adult rg5 MDM: 00:49 Patient medically screened. [facility] 01:20 Differential Diagnosis altered mental status, sepsis, flu. Data reviewed: vital signs, [facility] nurses notes. Consideration of Admission/Observation Escalation of care including admission/observation considered. I considered the following discharge prescriptions or medication management in the emergency department Medications were administered in the Emergency Department. See MAR. Test considered but Not performed: Labs: no labs. Care significantly affected by the following chronic conditions: none. Administered Medications: 01:27 Drug: Doxycycline PO 200 mg PO once Route: PO; rg5 01:58 Follow up: Response: No adverse reaction [facility] 01:27 Drug: Ibuprofen PO 600 mg PO once Route: PO; rg5 01:58 Follow up: Response: No adverse reaction rg5 Disposition Summary: 06/23/24 01:54 Discharge Ordered Notes: Location: Home(06/23/24 01:54) [facility] Condition: Stable(06/23/24 01:54) [facility] Diagnosis - Bitten by rat, subsequent encounter sheila Followup: sheila - With: Private Physician - When: 2 - 3 days - Reason: Recheck today's complaints, Continuance of care, Re-evaluation by your physician Followup: sheila - With: Dionicio Keys MD - When: 2 - 3 days - Reason: Recheck today's complaints, Re-evaluation by your physician Discharge Instructions: - Discharge Summary Sheet [facility] - Animal Bite, Adult, [id number] [facility] - Animal Bite, Adult [facility] Forms: - Medication Reconciliation Form [facility] - Antibiotic Education [facility] - Prescription Opioid Use [facility] - Patient Portal Instructions [facility] - Leadership Thank You Letter [facility] Prescriptions: - Ibuprofen 600 mg Oral tablet - take 1 tablet ORAL route every 6 hours As needed take with food; 20 tablet; [facility] Refills: 0, Product Selection Permitted - Doxycycline Hyclate 100 mg Oral Tablet - take 1 tablet ORAL route every 12 hours; 20 tablet; Refills: 0, Product [facility] Selection Permitted Signatures: Sven Payton MD MD cha Gallardo, Rommel RN RN rg5 Corrections: (The following items were deleted from the chart) 01:35 01:22 Home sheila rg5 :35 01:22 new sheila rg5 :35 01:22 have improved sheila rg5 :35 01:22 Stable sheila rg5 01:35 01:22 Bitten by rat, suzy sheila rg5
--- NOTE | 2024-06-23 01:23 | ER ---
Nurse's Notes [facility] Name: Dao Fortune Age: 38 yrs Sex: Male : 1985 Arrival Date: 06/23/2024 Time: 00:22 Bed 14 Private MD: Diagnosis: Bitten by rat, subsequent encounter Presentation: 06/23 00:30 Chief complaint: Patient states: had been bitten by rats 2mos ago \T\ rashes is coming rg5 back, also complaint of shoulder pain 04/04. 00:30 Coronavirus screen: Vaccine status: Patient reports being unvaccinated. Client denies rg5 travel out of the [place] in the last 14 days. Ebola Screen: Patient negative for fever greater than or equal to 101.5 degrees Fahrenheit, and additional compatible Ebola Virus Disease symptoms. Initial Sepsis Screen: Does the patient meet any 2 criteria? No. Patient's initial sepsis screen is negative. Does the patient have a suspected source of infection? No. Patient's initial sepsis screen is negative. Risk Assessment: Do you want to hurt yourself or someone else? Patient reports no desire to harm self or others. Onset of symptoms was June 23, 2024. 00:30 Method Of Arrival: Ambulatory rg5 00:30 Acuity: NICK 4 rg5 Triage Assessment: 01:12 General: Appears in no apparent distress. Behavior is calm, cooperative, appropriate rg5 for age. Pain: Complains of pain in anterior aspect of right shoulder and posterior aspect of right shoulder Pain currently is 6 out of 10 on a pain scale. Quality of pain is described as aching, Pain began 1 day ago. EENT: No deficits noted. Neuro: Level of Consciousness is awake, alert, obeys commands, Oriented to person, place, time. Cardiovascular: Denies chest pain, shortness of breath. Respiratory: Airway is patent Trachea midline Respiratory effort is even, unlabored, Respiratory pattern is regular, symmetrical. GI: No signs and/or symptoms were reported involving the gastrointestinal system. : No signs and/or symptoms were reported regarding the genitourinary system. Derm: Reports. Derm: Skin is intact, Skin is dry, Skin is normal, Skin temperature is warm. Musculoskeletal: Range of motion: intact in all extremities. Historical: - Allergies: :12 Iodine; rg5 - PSHx: 01:12 L arm SX; rg5 - Immunization history:: Adult Immunizations not up to date. - Infectious Disease History:: Denies. - Social history:: Smoking status: unknown. - Family history:: not pertinent. Screenin:12 [facility] ED Fall Risk Assessment (Adult) History of falling in the last 3 months, rg5 including since admission No falls in past 3 months (0 pts) Confusion or Disorientation No (0 pts) Intoxicated or Sedated No (0 pts) Impaired Gait No (0 pts) Mobility Assist Device Used No (0 pt) Altered Elimination No (0 pt) Score/Fall Risk Level 0 - 2 = Low Risk Hourly rounding (assess needs \T\ fall precautionary measures) done. Abuse screen: Denies threats or abuse. Nutritional screening: No deficits noted. Tuberculosis screening: No symptoms or risk factors identified. Assessment: 01:55 Reassessment: Patient and/or family updated on plan of care and expected duration. Pain rg5 level reassessed. Patient is alert, oriented x 3, equal unlabored respirations, skin warm/dry/pink. see triage assessment. 01:55 Reassessment: No changes from previously documented assessment. Patient and/or family rg5 updated on plan of care and expected duration. Pain level reassessed. Patient is alert, oriented x 3, equal unlabored respirations, skin warm/dry/pink. Vital Signs: 00:56 BP 128 / 78; Pulse 80; Resp 16; Temp 98.4; Pulse Ox 100% ; Weight 68.04 kg; Height 5 ty ft. 10 in. ; Pain 6/10; 01:12 BP 128 / 72; Pulse 80; Resp 16; Temp 98.2; Pulse Ox 100% on R/A; Pain 6/10; rg5 00:56 Body Mass Index 21.52 (68.04 kg, 177.8 cm) ty 00:56 Pain Scale: Adult ty 01:12 Pain Scale: Adult rg5 ED Course: 00:26 Patient arrived in ED. [email or web address] 00:48 Sven Payton MD is Attending Physician. [facility] 01:03 Salvador Briggs, CINDA is Primary Nurse. rg5 01:12 Triage completed. rg5 01:12 Arm band placed on right wrist. rg5 01:12 Patient has correct armband on for positive identification. Call light in reach. rg5 01:12 No provider procedures requiring assistance completed. Patient did not have IV access rg5 during this emergency room visit. 01:21 Dionicio Keys MD is Referral Physician. sheila 01:53 Dionicio Keys MD is Referral Physician. sheila 01:57 Provided Education on: post er care. rg5 Administered Medications: 01:27 Drug: Doxycycline PO 200 mg PO once Route: PO; rg5 01:58 Follow up: Response: No adverse reaction rg5 01:27 Drug: Ibuprofen PO 600 mg PO once Route: PO; rg5 01:58 Follow up: Response: No adverse reaction rg5 Medication: 01:12 VIS not applicable for this client. rg5 Outcome: 01:22 Discharge ordered by . sheila 01:54 Discharge ordered by . sheila 01:57 Discharged to home ambulatory, rg5 01:57 Condition: stable 01:57 Discharge instructions given to patient, Instructed on discharge instructions, follow up and referral plans. Demonstrated understanding of instructions, follow-up care, medications, Prescriptions given X 2, 01:59 Patient left the ED. rg5 Signatures: Sven Payton MD MD cha Jeffries, Jennifer [email or web address] David Alanis Rommel, RN RN rg5
[2024-06-23] MEDS ORDERED: DOXYCYCLINE 100 MG CAP PO ONE (01:24)
[2024-06-23 02:04] VITALS: O2SAT 100
[2024-06-23 02:06] VITALS: BP 128/72; TEMP 98.2
== END 2024-06-23 01:59 | disposition home or self-care (01) ==
LOC: ER 00:22
DX: M79.602 Pain in left arm (principal); M79.605 Pain in left leg; M79.604 Pain in right leg; W53.11XD Bitten by rat, subsequent encounter
CPT/HCPCS: 99283

== ENCOUNTER 2024-12-04 15:12 | Emergency (ER) | payer SELFPAY ==
[2024-12-04 17:35] LABS: Monoscreen NEG (NEG)
--- NOTE | 2024-12-04 17:37 | ER ---
Nurse's Notes [facility] Name: Dao Fortune Age: 38 yrs Sex: Male : 1985 Arrival Date: 12/04/2024 Time: 15:12 Bed 12 Private MD: Diagnosis: Encounter for mononucleosis screening, result negative Presentation: 12/04 15:50 Chief complaint: Chief complaint: Patient states: "my lymph nodes in my neck are a ss little sore and my son was diagnosed with mono last night.". Coronavirus screen: Client denies travel out of the [place] in the last 14 days. Ebola Screen: Patient denies exposure to infectious person. Patient denies travel to an Ebola-affected area in the 21 days before illness onset. Initial Sepsis Screen: Does the patient meet any 2 criteria? No. Patient's initial sepsis screen is negative. Does the patient have a suspected source of infection? No. Patient's initial sepsis screen is negative. Risk Assessment: Do you want to hurt yourself or someone else? Patient reports no desire to harm self or others. Onset of symptoms was December 03, 2024. 15:50 Method Of Arrival: Ambulatory ss 15:50 Acuity: NICK 4 ss Historical: - Allergies: 15:52 Iodine; ss - Home Meds: 15:52 None [Active]; ss - PMHx: 15:52 None; ss - PSHx: 15:52 L arm SX; ss - Immunization history:: Client reports receiving the 1st dose of the Covid vaccine. - Infectious Disease History:: Denies. - Social history:: Smoking status: Patient reports the use of cigarette tobacco products, smokes one pack cigarettes per day. Screenin:54 Abuse screen: Denies threats or abuse. Denies injuries from another. Nutritional ss screening: No deficits noted. Tuberculosis screening: Never had TB. 17:09 [facility] ED Fall Risk Assessment (Adult) History of falling in the last 3 months, ph including since admission No falls in past 3 months (0 pts) Confusion or Disorientation No (0 pts) Intoxicated or Sedated No (0 pts) Impaired Gait No (0 pts) Mobility Assist Device Used No (0 pt) Altered Elimination No (0 pt) Score/Fall Risk Level 0 - 2 = Low Risk Oriented to surroundings, Maintained a safe environment, Hourly rounding (assess needs \\T\\ fall precautionary measures) done. Assessment: 15:54 General: Appears comfortable, Behavior is calm, cooperative. Pain: Complains of pain in ss throat Pain currently is 2 out of 10 on a pain scale. Neuro: Level of Consciousness is awake, alert, obeys commands. Respiratory: Airway is patent Respiratory effort is even, unlabored, Respiratory pattern is regular, symmetrical. EENT: Nares are clear. Derm: Skin is intact, Skin is pink, warm \\T\\ dry. normal. Vital Signs: 15:49 Pulse 90; Resp 14; Pulse Ox 98% ; Weight 68.04 kg; Height 5 ft. 9 in. ; Pain 2/10; ss 15:50 BP 116 / 77; ss 15:50 Temp 98.4(O); ss 15:52 BP 116 / 77; ss 15:49 Body Mass Index 22.15 (68.04 kg, 175.26 cm) ss 15:49 Pain Scale: Adult ss ED Course: 15:15 Patient arrived in ED. im 15:27 Maegan Edgar PA-C [facility] sb4 15:27 Roberto Pimentel MD is Attending Physician. sb4 15:49 Arm band placed on right wrist. ss 15:52 Triage completed. ss 15:54 Priscilla Dan, CINDA is Primary Nurse. ss 15:54 Patient has correct armband on for positive identification. ss 16:50 Initial lab(s) drawn, by az, sent to lab. ph 17:43 No provider procedures requiring assistance completed. Patient did not have IV access ph during this emergency room visit. Administered Medications: No medications were administered Medication: 15:54 VIS not applicable for this client. Outcome: 17:36 Discharge ordered by . sb4 17:43 Discharged to home ambulatory, ph 17:43 Condition: good 17:43 Discharge instructions given to patient, Instructed on discharge instructions, follow up and referral plans. Demonstrated understanding of instructions, follow-up care, 17:43 Patient left the ED. ph Signatures: Priscilla Dan, RN RN Shara Moreno RN RN Maegan Edgar PA-C PA-C sb4 Vidhi Ryan im
--- NOTE | 2024-12-04 17:37 | EDPHYS ---
Physician Documentation [facility] Name: Dao Fortune Age: 38 yrs Sex: Male : 1985 Arrival Date: 12/04/2024 Time: 15:12 Bed 12 Private MD: ED Physician Roberto Pimentel HPI: 12/04 17:45 This 38 yrs old Male presents to ER via Ambulatory with complaints of Swollen Glands. sb4 17:45 Patient reports sore throat and swollen glands since this morning. He is concerned that sb4 he may have mono because his son tested positive last night. Denies any other symptoms. No fever, malaise, cough, fatigue. Historical: - Allergies: 15:52 Iodine; ss - Home Meds: 15:52 None [Active]; ss - PMHx: 15:52 None; ss - PSHx: 15:52 L arm SX; ss - Immunization history:: Client reports receiving the 1st dose of the Covid vaccine. - Infectious Disease History:: Denies. - Social history:: Smoking status: Patient reports the use of cigarette tobacco products, smokes one pack cigarettes per day. ROS: 17:45 Constitutional: Negative for fever, chills, and weight loss, sb4 17:45 ENT: Positive for sore throat, 17:45 Neck: Positive for swollen nodes, 17:45 All other systems are negative, Exam: 17:45 Constitutional: This is a well developed, well nourished patient who is awake, alert, sb4 and in no acute distress. Head/Face: Normocephalic, atraumatic. Eyes: Extra-ocular motions intact. Periorbital areas with no swelling, redness, or edema. Respiratory: No increased work of breathing, no retractions or nasal flaring. Skin: Warm, dry with normal turgor. Normal color with no rashes, no lesions, and no evidence of cellulitis. 17:45 ENT: Posterior pharynx: Tonsils: with erythema, no enlargement, erythema, that is mild, 17:45 Neck: Lymph nodes: lymphadenopathy is appreciated, anterior cervical nodes, Mildly enlarged, mildly tender, Vital Signs: 15:49 Pulse 90; Resp 14; Pulse Ox 98% ; Weight 68.04 kg; Height 5 ft. 9 in. ; Pain 2/10; ss 15:50 BP 116 / 77; ss 15:50 Temp 98.4(O); ss 15:52 BP 116 / 77; ss 15:49 Body Mass Index 22.15 (68.04 kg, 175.26 cm) ss 15:49 Pain Scale: Adult ss MDM: 15:51 Medical Screening Exam initiated sb4 17:45 Data reviewed: vital signs, nurses notes, lab test result(s), and as a result, I will sb4 discharge patient. Counseling: I had a detailed discussion with the patient and/or guardian regarding the historical points, exam findings, and any diagnostic results supporting the discharge/admit diagnosis, lab results, the need for outpatient follow up, for definitive care, to return to the emergency department if symptoms worsen or persist or if there are any questions or concerns that arise at home. ED course: Discussed with patient that his test was negative however it might be too early to have a positive result given that the symptoms just began this morning. Advised to avoid any contact sports and to practice droplet precautions. 12/04 15:55 Order name: [place] Screen Profile; Complete Time: 17:35 sb4 Administered Medications: No medications were administered Disposition: 12/05 09:06 Co-signature as Attending Physician, Roberto Pimentel MD I reviewed the patient's care rn provided by the Advanced Practice Provider and agree with the diagnosis and treatment plan. Disposition Summary: 12/04/24 17:36 Discharge Ordered Notes: Location: Home sb4 Problem: new sb4 Symptoms: are unchanged sb4 Condition: Stable sb4 Diagnosis - Encounter for mononucleosis screening, result negative sb4 Followup: sb4 - With: Private Physician - When: As needed - Reason: Recheck today's complaints, Re-evaluation by your physician Discharge Instructions: - Discharge Summary Sheet sb4 - Infectious Mononucleosis, [id number] sb4 - Mononucleosis Rapid Test sb4 Forms: - Work release form ph - Patient Portal Instructions sb4 - Leadership Thank You Letter sb4 Signatures: Dispatcher [employer] Roberto Denny MD MD rn Blanchard, Shelby, RN RN ss Brown, Sophia, PA-C PA-C sb4
[2024-12-04 17:51] VITALS: O2SAT 98
[2024-12-04 17:53] VITALS: BP 116/77; TEMP 98.4
== END 2024-12-04 17:43 | disposition home or self-care (01) ==
LOC: ER 15:12
DX: Z11.8 Encounter for screening for other infectious and parasitic diseases (principal)
CPT/HCPCS: 36415; 86308; 99283